=== PATIENT | female | born 1955 ===

== ENCOUNTER 2017-02-18 08:25 | Outpatient (CLI) | payer OTHER ==
--- NOTE | 2017-02-18 10:45 | Mammography Report ---
Screening mammogram: Routine views demonstrates a somewhat linear area of focal asymmetry in the inferior breast. The findings otherwise demonstrates intermediate and symmetrically distributed fibroglandular tissue with no significant findings. CAD used. Impression: Right breast asymmetry. Recommendation: Comparison with outside exams. These are being requested and followup report will be issued when made available. BI-RADS CATEGORY: 0 = Needs additional imaging evaluation ACR BI-RADS MAMMOGRAPHIC CODES: 0 = Needs additional imaging evaluation; 1 = Negative; 2 = Benign; 3 = Probably benign; 4 = Suspicious; 5 = Malignant; 6 = Known biopsy-proven malignancy COMMENT: 1. Dense breast tissue, i.e., adenosis, fibrocystic changes, etc., may obscure an underlying neoplasm. 2. Approximately 10% of cancers are not detected with mammography. 3. A negative mammography report should not delay biopsy if a clinically suspicious mass is present.
== END 2017-02-18 08:26 | disposition home or self-care (01) ==
LOC: SPVWC 08:25
PROVIDERS: ATTEND Family Medicine
DX: Z12.31 Encounter for screening mammogram for malignant neoplasm of breast (principal)
CPT/HCPCS: 77067; G0202

== ENCOUNTER 2018-05-08 15:19 | Outpatient (CLI) | payer OTHER ==
--- NOTE | 2018-05-08 15:29 | Mammography Report ---
BILATERAL DIGITAL SCREENING MAMMOGRAM with CAD: 05/08/18 09:00:00 CLINICAL: Routine screening. COMPARISON: 02/18/17 FINDINGS: There are bilateral scattered areas of fibroglandular density.No mass, architectural distortion or suspicious calcifications. IMPRESSION: No mammographic evidence of malignancy. BI-RADS CATEGORY: 1 -- Negative RECOMMENDATION: Routine mammographic screening in one year. COMMENT: Patient follow-up letters are generated by our [employer] application.
== END 2018-05-08 15:20 | disposition home or self-care (01) ==
LOC: SPVWC 15:19
PROVIDERS: ATTEND Family Medicine
DX: Z12.31 Encounter for screening mammogram for malignant neoplasm of breast (principal)
CPT/HCPCS: 77067